=== PATIENT | female | born 1990 | race Caucasian/White ===

== ENCOUNTER → 2019-12-19 08:33 | Outpatient (CLI) | payer OTHER, SELFPAY ==
[2019-12-19 09:32] LABS: hCG Titer Quant., Serum 5 mIU/mL (1-3)
== END ==
PROVIDERS: Referring Provider Obstetrics & Gynecology; Visit Provider Obstetrics & Gynecology
DX: O20.0 Threatened abortion (principal); Z3A.00 Weeks of gestation of pregnancy not specified
CPT/HCPCS: 36415; 84702

== ENCOUNTER → 2019-12-21 08:29 | Outpatient (CLI) | payer OTHER, SELFPAY ==
[2019-12-21 09:33] LABS: hCG Titer Quant., Serum 2 mIU/mL (1-3)
== END ==
PROVIDERS: Referring Provider Obstetrics & Gynecology; Visit Provider Obstetrics & Gynecology
DX: O20.0 Threatened abortion (principal); Z3A.00 Weeks of gestation of pregnancy not specified
CPT/HCPCS: 36415; 84702

== ENCOUNTER → 2020-03-19 | Outpatient (CLI) | payer OTHER, SELFPAY ==
[2020-03-19 09:18] VITALS: BMI 23.0
[2020-03-19 17:56] LABS: Chlamydia Trachomatis by PCR Negative (Negative); Neisserai gonorrhoeae by PCR Negative (Negative); Probe Check PASS; Sample Adequacy Control PASS; Specimen Processing Control PASS
[2020-03-27 04:38] LABS: HPV APTIMA, High Risk Negative (Negative)
== END | disposition home or self-care (01) ==
LOC: LABSPEC 14:13
PROVIDERS: Referring Provider Obstetrics & Gynecology; Visit Provider Obstetrics & Gynecology
DX: Z34.90 Encounter for supervision of normal pregnancy, unspecified, unspecified trimester (principal)
CPT/HCPCS: 87086; 87088; 87491; 87591; 87624; 88175; G0145

== ENCOUNTER → 2020-03-28 14:06 | Outpatient (CLI) | payer OTHER, SELFPAY ==
[2020-03-19 09:18] VITALS: BMI 23.0
[2020-03-28 14:42] LABS: Absolute Lymphocyte Count 2.05 X10^3/uL (0.83-4.51); Absolute Neutrophil Count 6.1 X10^3/uL (2.0-7.7); Basophil# 0.02 X10^3/uL; Basophil% 0.2 % (0-1); Eosinophil# 0.11 X10^3/uL; Eosinophils% 1.2 % (0-5); Hematocrit 39.7 % (37-47); Hemoglobin 13.2 g/dL (12.0-15.0); Lymphocyte # 2.05 X10^3/ul (4.0); Lymphocyte % 22.8 % (19-41); Mean Corp Hgb Conc 33.2 g/dL (32-36); Mean Corpuscular Hgb 29.7 pg (27.0-32.0); Mean Corpuscular Volume 89.2 fL (81-99); Mean Platelet Vol. 10.8 fl (6.2-12.0); Monocyte# 0.67 X10^3/uL; Monocyte% 7.4 % (0-10); NRBC Flagged by Analyzer 0 % (0-5); Neutrophil # 6.13 X10^3/uL (2.7-7.7); Neutrophil % 68.1 % (47-70); Platelet Count 314 K/mm3 (150-450); RBC Distribution Width CV 11.9 % (11.6-14.6); RBC Distribution Width SD 38.5 fl (35.1-43.9); Red Blood Count 4.45 M/mm3 (4.2-5.4)
[2020-03-28 16:15] LABS: NATERA MAILED SPECIMEN
[2020-03-29 03:25] LABS: Rapid Plasmin Reagin (RPR) NONREACTIVE (NONREACTIVE)
[2020-03-29 10:28] LABS: HIV - WCH Non-Reactive (Nonreactive); Hepatitis B Surface Antigen Non-Reactive (Nonreactive); Hepatitis C Antibody Non-Reactive (Nonreactive)
== END ==
PROVIDERS: Obstetrics & Gynecology; Referring Provider Nurse Practitioner Women's Health; Visit Provider Nurse Practitioner Women's Health
DX: Z34.90 Encounter for supervision of normal pregnancy, unspecified, unspecified trimester (principal)
CPT/HCPCS: 36415; 85025; 86592; 86703; 86762; 86803; 86850; 86900; 86901; 87340

== ENCOUNTER → 2020-05-14 10:28 | Outpatient (CLI) | payer OTHER, SELFPAY ==
[2020-05-14 09:55] VITALS: BMI 23.0
[2020-05-15 04:46] LABS: AFP, Tumor Marker 32.5 ng/mL (0.0-8.3)
== END ==
PROVIDERS: Referring Provider Obstetrics & Gynecology; Visit Provider Obstetrics & Gynecology
DX: Z36.9 Encounter for antenatal screening, unspecified (principal)
CPT/HCPCS: 36415; 82105

== ENCOUNTER → 2020-06-11 18:13 | Outpatient (CLI) | payer OTHER, SELFPAY ==
[2020-05-14 09:55] VITALS: BMI 23.0
[2020-06-11 16:35] VITALS: BMI 23.0
--- NOTE | 2020-06-11 19:06 | US_ITS ---
STUDY: SECOND AND THIRD TRIMESTER OBSTETRICAL ULTRASOUND REASON FOR EXAM: Female, 29 years old ANATOMY SCREENING LMP: 01/16/2020 TECHNIQUE: Transabdominal TECHNICAL QUALITY: Adequate. PRIOR ULTRASOUND: None. FINDINGS: There is a single intrauterine fetus. The fetus is in a breech presentation. There is demonstrated cardiac activity with a heart rate of 141 bpm. There is a normal amniotic fluid volume. The largest amniotic fluid pocket measures 8.7 cm. The amniotic fluid index (ALEX) is 7.13 cm. The placenta is anterior in location and is not low lying. There are Grade 0 placental changes. The cervix measures 4.7 cm in length. The adnexal regions are not visualized. BIOMETRY: BPD: 4.9 cm: 20 weeks, 5 days HC: 18.76 cm: 21 weeks, 0 days AC: 17.22 cm: 27 weeks, 1 days FL: 3.43 cm: 20 weeks, 5 days CI: 73.4% FL/BPD: 70% FL/HC: FL/AC: 20% HC/AC: 1.09 age by current US: 20 weeks, 6 days. AUDREY by current US: 10/23/2020. Estimated weight: 429 grams, +/- 64 grams, 78 %. Age by LMP: 21 weeks, 0 days. AUDREY by LMP: 10/22/2020. ANATOMY: Gender: Female Cranium: Normal lateral ventricles. Normal choroid plexus. Normal cerebellum. Normal cisterna magna. Normal face, nose and lips. Chest: Normal 4-chamber heart. Abdomen/Pelvis: Normal diaphragm. Normal stomach. Normal abdominal wall. Normal cord insertion. Normal 3 vessel cord. Normal kidneys. Normal bladder. Spine: Normal cervical spine. Normal thoracic spine. Normal lumbar spine. Normal sacrum. Extremities: Normal bilateral upper extremities. Normal bilateral lower extremities. US/OB Anatomy Scan IMPRESSION: Single live intrauterine gestation with mean gestational age of 20 weeks and 6 days. Electronically Signed: Cr Cagle, at 13:52 EDT , Service support ,
== END ==
PROVIDERS: Referring Provider Obstetrics & Gynecology; Visit Provider Obstetrics & Gynecology
DX: Z34.90 Encounter for supervision of normal pregnancy, unspecified, unspecified trimester (principal)
CPT/HCPCS: 76805

== ENCOUNTER → 2020-07-30 14:55 | Outpatient (CLI) | payer OTHER, SELFPAY ==
[2020-07-12 15:32] VITALS: BMI 25.9
[2020-07-30 15:33] LABS: Absolute Lymphocyte Count 2.25 X10^3/uL (0.83-4.51); Absolute Neutrophil Count 8.9 X10^3/uL (2.0-7.7); Basophil# 0.03 X10^3/uL; Basophil% 0.3 % (0-1); Eosinophil# 0.08 X10^3/uL; Eosinophils% 0.7 % (0-5); Hematocrit 36.8 % (37-47); Lymphocyte # 2.25 X10^3/ul (4.0); Lymphocyte % 18.8 % (19-41); Mean Corp Hgb Conc 32.6 g/dL (32-36); Mean Corpuscular Hgb 29.8 pg (27.0-32.0); Mean Corpuscular Volume 91.3 fL (81-99); Mean Platelet Vol. 10.3 fl (6.2-12.0); Monocyte# 0.66 X10^3/uL; Monocyte% 5.5 % (0-10); NRBC Flagged by Analyzer 0 % (0-5); Neutrophil # 8.88 X10^3/uL (2.7-7.7); Neutrophil % 74.4 % (47-70); Platelet Count 296 K/mm3 (150-450); RBC Distribution Width CV 12.8 % (11.6-14.6); RBC Distribution Width SD 42.3 fl (35.1-43.9); Red Blood Count 4.03 M/mm3 (4.2-5.4); White Blood Count 11.9 K/mm3 (4.4-11.0)
[2020-07-30 16:01] LABS: Glucose Challenge Gest 1H 50g 122 mg/dL (70-140)
[2020-08-07 01:18] LABS: CF, Screen Comment: (.)
== END ==
PROVIDERS: Referring Provider Obstetrics & Gynecology; Visit Provider Obstetrics & Gynecology
DX: Z34.90 Encounter for supervision of normal pregnancy, unspecified, unspecified trimester (principal); Z13.1 Encounter for screening for diabetes mellitus
CPT/HCPCS: 36415; 81220; 82950; 85025

== ENCOUNTER → 2020-09-24 | Outpatient (CLI) | payer OTHER, SELFPAY ==
[2020-09-24 16:08] VITALS: BMI 28.6
== END | disposition home or self-care (01) ==
LOC: LABSPEC 18:08
PROVIDERS: Visit Provider Obstetrics & Gynecology
DX: Z34.90 Encounter for supervision of normal pregnancy, unspecified, unspecified trimester (principal)
CPT/HCPCS: 87081

== ENCOUNTER → 2020-10-19 17:25 | Outpatient (CLI) | payer OTHER, SELFPAY ==
[2020-09-24 16:08] VITALS: BMI 28.6
[2020-10-19 15:31] VITALS: BMI 29.2
== END ==
PROVIDERS: Obstetrics & Gynecology; Visit Provider Nurse Practitioner Women's Health
DX: Z34.90 Encounter for supervision of normal pregnancy, unspecified, unspecified trimester (principal)
CPT/HCPCS: 87635; C9803; U0005; U0003

== ENCOUNTER 2020-10-29 19:05 | Inpatient (IN) | payer OTHER, SELFPAY ==
[2020-10-12 15:20] VITALS: BMI 28.8
[2020-10-26 15:10] VITALS: BMI 28.4
[2020-10-29 20:08] VITALS: BP 125/82; PULSE 84; PULSE 87; TEMP 36.8; O2SAT 96; O2SAT 97
[2020-10-29] MEDS: Lactated Ringers 1,000 ML 50 ML IV (20:30)
--- NOTE | 2020-10-29 20:30 | HP.PCM_ITS ---
- Problem List (1) 36 weeks gestation of Status: Acute Comment: Negative COVID (2) Status: Acute Qualifiers: Weeks of gestation: 41 weeks Qualified Code(s): Z3A.41 - 41 weeks gestation of Comment: genetic low risk. NEG AFP, anatomy normal; NEG CF screen (3) Supervision of normal Status: Acute Qualifiers: Comment: PRR AUDREY 10/22/20 girl Judie, Samuel History and Physical Date of Admission: 10/29/20 Intake Vital Signs 10/26/20 Height 5 ft 5 in 10/26/20 Weight: 171 lb 10/26/20 BP 120/72 Intake Visit Reasons: 41WK OB Allergies No Known Allergies Allergy (Verified 10/19/20 15:34) Last Menstral Period: 01/16/20 PFSH PFSH Surgical History H/O oral surgery (Acute) Family History Father Heart disease Cancer Diabetes Parkinsons disease Social History (Updated 10/26/20 @ 15:[address] Emma Everett MD) household members: spouse housing: house number of children: 0 current occupational status: employed current occupation: physical therapist @ [employer] history of recent travel: No sexually active: Yes Smoking Status: Never smoker alcohol intake: current alcohol intake frequency: holidays/special occasions only substance use type: does not use well-balanced diet: daily or most days caffeine: Yes (1) Type: coffee what type of physical activity do you participate in: walking frequency: 5-6 times per week seatbelt use: always do you feel safe at home: Yes Pregancy History 2 Elective abortions Hx Para 0 Spontaneous abortions 1 Hx # Term Pregnancies Ectopic pregnancies Hx # Pregnancies Multiple births # of living children HPI 41WK OB : Details: KAYLEE HICKMAN is a 29 year old G2, P0 at 41 weeks presents for induction of labor secondary to postdates. She has had an uncomplicated . OB Visit AUDREY Calculator Estimated Delivery Date Method Current WG Current Estimate 10/22/20 LMP (Certain) 40w 4d Other Estimates 10/22/20 Ultrasound #1 40w 4d Expected Delivery Route/Plan Labor Preferences- CB classes: done labor support person: Samuel pain management options preferred: epidural cut cord/dad catch: yes maybe : yes PP control planned: [] discussed possible routes of delivery and associated risks: discussed possible delivery modalities and possible indications for each including R/B/A of , VAVD, and CS. questions answered. special requests: [] Specific Issue/Plans flu vaccine: get at work tdap vaccine: given rhogam: na LARC form signed: declined movement and labor precautions reviewed. Problem list reviewed and updated with the most current plan of care details and appropriate orders placed. Relevant counseling for the gestational age provided. Continue routine care and follow up unless otherwise noted in visit notes/problem list details Initial Weight: 135 lb Date EGA Weight BP Urine Prot Glucose FHR FuHt Pres Dilation Effaced St Visit Note 03/19/20 9w 0d 138 lb 4 oz (+3 lb 4 oz) 122/76 180 CRL 2.1 cm consistent with LMP 04/18/20 13w 2d 142 lb (+7 lb) 122/74 Negative Negative 160 SM- no vb cramping 05/14/20 17w 0d 145 lb (+10 lb) 104/80 150 SM- no vb cramping, plan carrier and ntd screen today 06/11/20 21w 0d 147 lb (+12 lb) 100/60 Negative Negative 145 GP - no cramping, LOF, DFM, ctx. Anatomy scan this evening. 07/12/20 25w 3d 156 lb (+21 lb) 110/72 145 25 SM- no vb lof good fm no regular ctx 07/30/20 28w 0d 158 lb 8 oz (+23 lb 8 oz) 118/80 Negative Negative 135 28 GP - no LOF, VB, DFM, ctx. Decided on Judie for name. TDAP given. LARC form signed. GCT done today, but pending. GP - no LOF, VB, DFM, ctx. Decided on Judie for name. TDAP given. LARC form signed. GCT normal. 08/13/20 30w 0d 160 lb (+25 lb) 112/82 Negative Negative 135 30 SM- no vb lof good fm no regular ctx 08/29/20 32w 2d 161 lb 8 oz (+26 lb 8 oz) 114/70 Negative Negative 135 32 SM- no vb lof good fm no regular ctx 09/13/20 34w 3d 165 lb (+30 lb) 124/80 Negative Negative 140 34 GP - no LOF, VB, DFM, ctx. CB classes scheduled for this weekend. 09/24/20 36w 0d 167 lb (+32 lb) 110/82 Negative Negative 130 36 Cephalic 0 SM- no vb lof good fm no regular ctx gbs 10/05/20 37w 4d 167 lb (+32 lb) 110/82 Negative Negative 125 37 Cephalic 1 Sm- no vb lof good fm no regular ctx 10/12/20 38w 4d 168 lb (+33 lb) 116/78 Negative Negative 130 38 Cephalic 1 SM- no vb lof good fm no regular ctx 10/19/20 39w 4d 170 lb 4 oz (+35 lb 4 oz) 122/80 Negative Negative 125 39 Cephalic 1 50 -2 GP - no LOF, VB, DFM, ctx . Denies complaints. 10/26/20 40w 4d 171 lb (+36 lb) 120/72 130 40 Cephalic 1 50 -2 SM- no vb lof good fm no regular ctx ACOG First Trimester First Trimester: Desire for , Alcohol, Tobacco Cessation, Illicit/Recreational Drug/Substance Use, Intimate Partner Violence, Barriers to care, Unstable Housing, Communication Barriers, Environmental/Work Hazards, Anticipated Course of Care, Toxoplasmosis Precations, Use of Any medications, Sexual activity, Exercise, Dental Care, Sauna/Hot tub use, Seat Belt use, Childbirth classes/Hospital facilities, , Travel, Indications for US and Screening for Aneuploidy Diagnostics Diagnostics Diagnostics Glucose 1 Hr 50 gm 122 mg/dL (70-140) 07/30/20 Hgb 12.0 g/dL (12.0-15.0) 07/30/20 Hct 36.8 % (37-47) L 07/30/20 Details: HIV: Urine Culture: Sequential Screen: NIPT Screen: ROS Const Reports system reviewed and no additional complaints, except as docu Card Reports system reviewed and no additional complaints, except as docu Resp Reports system reviewed and no additional complaints, except as docu GI Reports system reviewed and no additional complaints, except as docu, Reports nausea Reports system reviewed and no additional complaints, except as docu Musc Reports system reviewed and no additional complaints, except as docu Exam Const General: cooperative, healthy appearing, comfortable, anxious HENMT Head: normal to inspection Nose: external nose normal Face and sinus: normal facial exam Neck Neck: normal visual inspection, full ROM, no lymphadenopathy Thyroid: thyroid normal Chest Chest palpation & inspection: normal inspection of the chest Resp Effort & Inspection: normal respiratory effort GI Inspection: normal to inspection Palpation: soft, other (gravid uterus) Other: infant vertex and appropriate size for gestational age Other: Cervical Exam: Extrem General: pedal edema Assessment & Plan Problems 1. Supervision of normal Z34.90 PRR AUDREY 10/22/20 girl Judie, Samuel 2. Z34.90 genetic low risk. NEG AFP, anatomy normal; NEG CF screen 3. 36 weeks gestation of Z3A.36 Negative COVID 41 weeks postdates induction of labor Patient presents IOL, plan management for with Cytotec then Pitocin/AROM. Pain management: [plans epidural]. GBS [negative]. Management of any complications: [none] I have reviewed the [facility] and made any clinically relevant updates. Coding Level of Care Code OB Routine Diagnoses Supervision of normal Z34.90 Z34.90 36 weeks gestation of Z3A.36 UPDATE- I have seen the patient and performed any clinically relevant updates to the history and physical exam. Emma Everett MD
[2020-10-29 20:37] VITALS: BMI 28.6
[2020-10-29 20:49] LABS: Absolute Lymphocyte Count 1.95 X10^3/uL (0.83-4.51); Absolute Neutrophil Count 7.9 X10^3/uL (2.0-7.7); Basophil# 0.03 X10^3/uL; Basophil% 0.3 % (0-1); Eosinophil# 0.11 X10^3/uL; Hematocrit 37.4 % (37-47); Hemoglobin 12.8 g/dL (12.0-15.0); Lymphocyte # 1.95 X10^3/ul (4.0); Lymphocyte % 17.9 % (19-41); Mean Corp Hgb Conc 34.2 g/dL (32-36); Mean Corpuscular Hgb 30.6 pg (27.0-32.0); Mean Corpuscular Volume 89.5 fL (81-99); Mean Platelet Vol. 11.4 fl (6.2-12.0); Monocyte# 0.89 X10^3/uL; Monocyte% 8.2 % (0-10); NRBC Flagged by Analyzer 0 % (0-5); Neutrophil # 7.85 X10^3/uL (2.7-7.7); Platelet Count 257 K/mm3 (150-450); RBC Distribution Width CV 12.4 % (11.6-14.6); RBC Distribution Width SD 40.5 fl (35.1-43.9); Red Blood Count 4.18 M/mm3 (4.2-5.4); White Blood Count 10.9 K/mm3 (4.4-11.0)
[2020-10-29] MEDS: 0.9% Saline Lock 10 ML Syringe IV (21:17)
--- NOTE | 2020-10-29 22:58 | NURSING ---
pt induction placed on hold. will be restarted in AM d/t unit acuity and activity.
[2020-10-29 23:12] VITALS: TEMP 36.7
[2020-10-29] MEDS: DiphenhydrAMINE 25 MG Capsule 50 MG PO (23:13)
[2020-10-30] VITALS (58 sets, daily range): BP systolic 99–138; BP diastolic 56–86; PULSE 69–130; RESP 18; TEMP 36.4–37.3; O2SAT 80–99
[2020-10-30] MEDS: miSOPROStol 25 MCG TABLET VAGINAL (06:17)
[2020-10-30] MEDS: 0.9% Normal Saline Single 100 ML IV.SOLN. INTRA-UTER (06:20)
[2020-10-30] MEDS: Ondansetron 4 MG/2 ML Vial IV ×2 (07:20→15:52)
[2020-10-30] MEDS: 0.9% Saline Lock 10 ML Syringe IV (07:20)
[2020-10-30] MEDS: Oxytocin 30 units/NS 500 ml 30 UNITS/500 ML IV.SOLN IV (10:50)
[2020-10-30] MEDS: Lactated Ringers 500 ML 999 ML IV (14:38)
[2020-10-30] MEDS: fentaNYL-bupivacaine (epidural) 100 ML BAG EPIDURAL (15:07)
[2020-10-30] MEDS: Lactated Ringers 1,000 ML 200 ML IV (17:24)
[2020-10-30] MEDS: Oxytocin 30 units/NS 500 ml 30 UNITS/500 ML IV.SOLN 334 UNITS IV (19:23)
--- NOTE | 2020-10-30 19:36 | PCM.OPRPT ---
Problem List (1) 36 weeks gestation of Status: Acute Comment: Negative COVID (2) Status: Acute Qualifiers: Weeks of gestation: 41 weeks Qualified Code(s): Z3A.41 - 41 weeks gestation of Comment: genetic low risk. NEG AFP, anatomy normal; NEG CF screen (3) Supervision of normal Status: Acute Qualifiers: Comment: PRR AUDREY 10/22/20 girl Judie, Samuel Vaginal Delivery Maternal Presentation: Medically Indicated Induction iol postdates Method of Induction: Pitocin, Cytotec Medical Reason for Induction: Post term Amniotic Membrane Rupture Type: Artificial Amniotic Fluid Description: Clear Final AUDREY: 10/22/20 Gestational age: 41 Weeks and 1 Days Date of Procedure: 10/30/20 Pre-Operative Diagnosis: iol postdates Post-Operative Diagnosis: same Surgery/ Procedure Performed: Spontaneous Vaginal Delivery Type of Anesthesia: Epidural Description of Procedure: Patient began pushing and delivered the head in the MALIK presentation. The head was delivered atraumatically and a tight nuchal cord was noted that the was maneuvered and delivered through. The anterior and posterior shoulders delivered without complication followed by the rest of the infant and the infant was placed on the maternal abdomen. Delayed cord clamping was employed for approximately 60 seconds. Cord was clamped and cut and gentle traction was applied to the cord and the placenta delivered spontaneously immediately following it was noted to be intact with three-vessel cord. The perineum and vagina were inspected and have a second-degree perineal laceration repaired in the usual fashion with 3-0 Vicryl repeat. EBL was 200 cc. Patient and infant tolerated delivery well. Presentation: MAIA Placental Delivery Description: Spontaneous Placenta Disposition: [facility] Cord Vessel Description: 3 Vessels Cord Entanglement: Around neck x 1, tight Estimated Blood Loss: 200 A gender: Female Episiotomy Description: None Laceration: Perineal Extension/lac, 2nd degree Medications given after delivery: IV Pitocin Complications: None Multi Select Codes - Urinary/Genital Urinary/Genital CPT Codes: 38268 [facility]aginal [facility]
[2020-10-31] VITALS (8 sets, daily range): BP systolic 103–130; BP diastolic 62–66; PULSE 71–85; RESP 15–18; TEMP 36.6–36.9
[2020-10-31] MEDS: Naproxen 250 MG Tablet 500 MG PO ×2 (04:02→13:33)
--- NOTE | 2020-10-31 08:03 | PCM.PN.OB ---
Patient Problems: Active and Suspected Problems (Last Reviewed 10/19/20 @ 15:34 by Yaa Black) 36 weeks gestation of (Acute) Negative COVID (Acute) genetic low risk. NEG AFP, anatomy normal; NEG CF screen Supervision of normal (Acute) PRR AUDREY 10/22/20 girl Judie, Samuel Subjective: Patient doing well without complaints. Tolerating PO. Ambulating and voiding without difficulty. Breast feeding well. Denies chest pain, shortness of breath, calf pain/swelling, fevers, chills, lightheadedness. - Physical Exam Vitals/I&O's: Vital Signs Temp Pulse Resp BP Pulse Ox 98.4 F 85 18 107/62 96 10/31/20 03:53 10/31/20 03:53 10/31/20 03:53 10/31/20 03:53 10/30/20 23:45 Oxygen Delivery Method Room Air Weight: 172 lb 3.2 oz Body Mass Index (BMI) 28.6 Intake and Output for Last 24 Hours 10/29/20 10/30/20 10/31/20 23:59 23:59 23:59 Intake Total 39.17 / 39.17 3297.24 / 3297.24 Output Total 1000 / 1000 750 / 750 Balance 39.17 / 39.17 2297.24 / 2297.24 -750 / -750 General: Alert, Oriented x3 Abdomen: Soft, Non Tender, Non-Distended, - - FF below U Microbiology Past 72 Hours 10/29/20 21:00 Mucosa - Nose SARS-CoV-2 Antigen (Rapid) - Final Current Medications Acetaminophen (Acetaminophen 500 Mg Tablet) 1,000 mg PO Q8H PRN PRN PRN Reason: Pain Score 1-3 Bisacodyl (Bisacodyl 10 Mg Suppository) 10 mg RC UD PRN PRN Reason: If no BM Dibucaine (Dibucaine 30 Gm Tube) 1 applic TOPICAL TID PRN PRN; Protocol PRN Reason: Discomfort Hydrocortisone (Hydrocortisone 2.5% Crm) 1 applic TOPICAL TID PRN PRN; Protocol PRN Reason: Discomfort Methylergonovine Maleate (Methylergonovine 0.2 Mg/Ml Ampul) 0.2 mg IM X1 PRN PRN Reason: Excess bleeding/uterine atony Naproxen (Naproxen 250 Mg Tablet) 500 mg PO Q8H PRN PRN PRN Reason: Pain Score 1-3 Last Admin: 10/31/20 04:02 Dose: 500 mg Documented by: Ondansetron HCl (Ondansetron 4 Mg/2 Ml Vial) 4 mg IV Q4H PRN PRN PRN Reason: Nausea Oxycodone HCl (Oxycodone 5 Mg Tablet) 5 - 10 mg PO Q4H PRN PRN PRN Reason: Pain Score 4-10 Senna/Docusate Sodium (Senna/Docusate Sodium 1 Tablet) 1 - 2 tablet PO DAILY PRN PRN PRN Reason: Constipation Simethicone (Simethicone 80 Mg Tablet) 80 mg PO PCHS PRN PRN Reason: Indigestion/Stomach pain Sodium Chloride (0.9% Saline Lock 10 Ml Syringe) 5 - 15 ml IV UD PRN PRN Reason: SALINE FLUSH Medical Necessity - Tobacco Use Smoking Status: Never smoker Assessment/Plan All Active Problems (Last Reviewed 10/19/20 @ 15:34 by Yaa Black) 36 weeks gestation of (Acute) (Acute) Supervision of normal (Acute) s/p PPD # 1 1. routine post delivery care 2. breast feeding- support given 3. rh positive 4. rubella immune
[2020-10-31] MEDS: Acetaminophen 500 MG Tablet 1000 MG PO ×2 (09:48→20:41)
[2020-11-01 01:08] VITALS: BP 107/64; PULSE 75
[2020-11-01 01:09] VITALS: BP 107/64; PULSE 75; RESP 18; TEMP 36.5
[2020-11-01] MEDS: Naproxen 250 MG Tablet 500 MG PO ×2 (01:15→10:01)
[2020-11-01] MEDS: Acetaminophen 500 MG Tablet 1000 MG PO (06:44)
[2020-11-01 07:40] VITALS: BP 110/66; PULSE 67; RESP 16; TEMP 37.1
--- NOTE | 2020-11-01 07:53 | PCM.PN.OB ---
Subjective: Patient doing well without complaints. Tolerating PO. Ambulating and voiding without difficulty. well. Denies chest pain, shortness of breath, calf pain/swelling, fevers, chills, lightheadedness. - Physical Exam Vitals/I&O's: Vital Signs Temp Pulse Resp BP Pulse Ox 97.7 F L 75 18 107/64 96 11/01/20 01:09 11/01/20 01:09 11/01/20 01:09 11/01/20 01:09 10/30/20 23:45 Oxygen Delivery Method Room Air Weight: 172 lb 3.2 oz Body Mass Index (BMI) 28.6 Intake and Output for Last 24 Hours 10/30/20 10/31/20 11/01/20 23:59 23:59 23:59 Intake Total 3297.24 / 3297.24 Output Total 1000 / 1000 750 / 750 Balance 2297.24 / 2297.24 -750 / -750 General: Alert, Oriented x3 Abdomen: Soft, Non Tender, - - FF below U Microbiology Past 72 Hours 10/29/20 21:00 Mucosa - Nose SARS-CoV-2 Antigen (Rapid) - Final Current Medications Acetaminophen (Acetaminophen 500 Mg Tablet) 1,000 mg PO Q8H PRN PRN PRN Reason: Pain Score 1-3 Last Admin: 11/01/20 06:44 Dose: 1,000 mg Documented by: Bisacodyl (Bisacodyl 10 Mg Suppository) 10 mg RC UD PRN PRN Reason: If no BM Dibucaine (Dibucaine 30 Gm Tube) 1 applic TOPICAL TID PRN PRN; Protocol PRN Reason: Discomfort Hydrocortisone (Hydrocortisone 2.5% Crm) 1 applic TOPICAL TID PRN PRN; Protocol PRN Reason: Discomfort Methylergonovine Maleate (Methylergonovine 0.2 Mg/Ml Ampul) 0.2 mg IM X1 PRN PRN Reason: Excess bleeding/uterine atony Naproxen (Naproxen 250 Mg Tablet) 500 mg PO Q8H PRN PRN PRN Reason: Pain Score 1-3 Last Admin: 11/01/20 01:15 Dose: 500 mg Documented by: Ondansetron HCl (Ondansetron 4 Mg/2 Ml Vial) 4 mg IV Q4H PRN PRN PRN Reason: Nausea Oxycodone HCl (Oxycodone 5 Mg Tablet) 5 - 10 mg PO Q4H PRN PRN PRN Reason: Pain Score 4-10 Senna/Docusate Sodium (Senna/Docusate Sodium 1 Tablet) 1 - 2 tablet PO DAILY PRN PRN PRN Reason: Constipation Simethicone (Simethicone 80 Mg Tablet) 80 mg PO PCHS PRN PRN Reason: Indigestion/Stomach pain Sodium Chloride (0.9% Saline Lock 10 Ml Syringe) 5 - 15 ml IV UD PRN PRN Reason: SALINE FLUSH Medical Necessity - Tobacco Use Smoking Status: Never smoker Assessment/Plan All Active Problems (Last Reviewed 10/19/20 @ 15:34 by Yaa Black) 36 weeks gestation of (Resolved) (Resolved) Supervision of normal (Resolved) s/p PPD # 2 1. routine post delivery care 2. breast feeding- support given 3. rh positive 4. rubella immune 5. enc stool softener 6. home today
[2020-11-01 07:56] VITALS: BP 110/66; PULSE 67
--- NOTE | 2020-11-01 07:57 | DCINST_ITS ---
Additional Instructions: If you experience any of the following, contact your healthcare provider. * Bleeding that soaks a pad every hour for 2 hours * Fever 100.4 or higher * Unrelieved incision or abdominal pain * Swelling, redness, discharge or bleeding from your incision or episiotomy site * Your incision begins to separate * Problems urinating (including inability to urinate or burning while urinating). * Visual changes * Severe headache * Flu-like symptoms * Pain or redness in one of both of your breasts * Pain, warmth, tenderness or swelling in your legs, especially the calf area * Frequent nausea and vomiting * Symptoms of depression or anxiety If you experience any of the following, call 911 or go to the nearest Emergency Room. * Chest pain * Problems breathing * Seizure activity * Partial or complete paralysis of a body part, slurred speech, weakness or drooping of the face, or a sudden inability to walk or hold your balance Allergies/Adverse Reactions: Allergies No Known Allergies Allergy (Verified 10/29/20 20:45) Medications to take at Discharge vitamin#30 30 mg iron-10 mg iron-folic acid 1 mg-omg3 capsule 1 cap PO DAILY 04/18/20 Primary Care Physician: Care Physician,No Primary [Primary Care Provider] - Test Results: Test results from this visit will be discussed in further detail at your follow- up appointment, if applicable.
--- NOTE | 2020-11-01 07:57 | PCM.DCVAG ---
Additional Instructions: If you experience any of the following, contact your healthcare provider. Bleeding that soaks a pad every hour for 2 hours Fever 100.4 or higher Unrelieved incision or abdominal pain Swelling, redness, discharge or bleeding from your incision or episiotomy site Your incision begins to separate Problems urinating (including inability to urinate or burning while urinating). Visual changes Severe headache Flu-like symptoms Pain or redness in one of both of your breasts Pain, warmth, tenderness or swelling in your legs, especially the calf area Frequent nausea and vomiting Symptoms of depression or anxiety If you experience any of the following, call 911 or go to the nearest Emergency Room. Chest pain Problems breathing Seizure activity Partial or complete paralysis of a body part, slurred speech, weakness or drooping of the face, or a sudden inability to walk or hold your balance Allergies/Adverse Reactions: Allergies No Known Allergies Allergy (Verified 10/29/20 20:45) Medications to take at Discharge vitamin#30 30 mg iron-10 mg iron-folic acid 1 mg-omg3 capsule 1 cap PO DAILY 04/18/20 Primary Care Physician: Care Physician,No Primary [Primary Care Provider] - Test Results: Test results from this visit will be discussed in further detail at your follow-up appointment, if applicable.
[2020-11-01] MEDS: Senna/Docusate Sodium 1 Tablet PO (10:00)
== END 2020-11-01 10:40 | disposition home or self-care (01) | DRG 807 ==
PROVIDERS: Admitting Provider Obstetrics & Gynecology; Visit Provider Obstetrics & Gynecology
DX: O48.0 Post-term pregnancy (principal); Z37.0 Single live birth; Z3A.41 41 weeks gestation of pregnancy; O69.1XX0 Labor and delivery complicated by cord around neck, with compression, not applicable or unspecified; O70.1 Second degree perineal laceration during delivery
CPT/HCPCS: 59025; 59050; 85025; 86850; 86900; 86901; 87426; 99218; J7120; A4216; G0378; J2405

== ENCOUNTER → 2022-10-30 | Outpatient (CLI) | payer OTHER, SELFPAY ==
[2022-10-30 15:33] LABS: Absolute Lymphocyte Count 0.95 X10^3/uL (0.83-4.51); Absolute Neutrophil Count 3.2 X10^3/uL (2.0-7.7); Basophil# 0.01 X10^3/uL; Basophil% 0.2 % (0-1); Eosinophil# 0.05 X10^3/uL; Eosinophils% 1.1 % (0-5); Hematocrit 41.2 % (37-47); Lymphocyte # 0.95 X10^3/ul (0.83-4.51); Lymphocyte % 20.2 % (19-41); Mean Corpuscular Hgb 29.4 pg (27.0-32.0); Mean Corpuscular Volume 86.4 fL (81-99); Mean Platelet Vol. 10.2 fl (6.2-12.0); Monocyte# 0.48 X10^3/uL; Monocyte% 10.2 % (0-10); NRBC Flagged by Analyzer 0 % (0-5); Neutrophil % 68.1 % (47-70); Platelet Count 278 K/mm3 (150-450); RBC Distribution Width CV 12.5 % (11.6-14.6); RBC Distribution Width SD 39.6 fl (35.1-43.9); Red Blood Count 4.77 M/mm3 (4.2-5.4); White Blood Count 4.7 K/mm3 (4.4-11.0)
[2022-10-30 16:24] LABS: HIV - WCH Non-Reactive (Nonreactive); Hepatitis B Surface Antigen Non-Reactive (Nonreactive); Hepatitis C Antibody Non-Reactive (Nonreactive); Rubella IgG Reactive (Nonreactive); Syphilis Antibodies Non-reactive
[2022-11-02 07:07] LABS: Chlamydia By Nucleic Acid AMP Negative (Negative)
[2022-11-02 08:31] LABS: Gonococcus By Nucleic Acid AMP Negative (Negative)
== END | disposition home or self-care (01) ==
PROVIDERS: Referring Provider Obstetrics & Gynecology; Visit Provider Obstetrics & Gynecology
DX: Z34.90 Encounter for supervision of normal pregnancy, unspecified, unspecified trimester (principal)
CPT/HCPCS: 36415; 85025; 86703; 86762; 86780; 86803; 86850; 86900; 86901; 87086; 87340; 87491; 87591

== ENCOUNTER → 2023-02-20 | Outpatient (CLI) | payer OTHER, SELFPAY ==
[2023-02-20 14:32] LABS: Absolute Lymphocyte Count 1.76 X10^3/uL (0.83-4.51); Absolute Neutrophil Count 7.7 X10^3/uL (2.0-7.7); Basophil# 0.03 X10^3/uL; Basophil% 0.3 % (0-1); Hematocrit 36.6 % (37-47); Hemoglobin 12.4 g/dL (12.0-15.0); Lymphocyte # 1.76 X10^3/ul (0.83-4.51); Lymphocyte % 17.4 % (19-41); Mean Corp Hgb Conc 33.9 g/dL (32-36); Mean Corpuscular Hgb 30.8 pg (27.0-32.0); Mean Platelet Vol. 10.1 fl (6.2-12.0); Monocyte% 4.9 % (0-10); NRBC Flagged by Analyzer 0 % (0-5); Neutrophil # 7.71 X10^3/uL (2.7-7.7); Neutrophil % 76.2 % (47-70); Platelet Count 296 K/mm3 (150-450); RBC Distribution Width SD 43.1 fl (35.1-43.9); Red Blood Count 4.02 M/mm3 (4.2-5.4); White Blood Count 10.1 K/mm3 (4.4-11.0)
[2023-02-20 15:02] LABS: Glucose Challenge Gest 1H 50g 130 mg/dL (70-140)
[2023-02-20 16:11] LABS: HIV - WCH Non-Reactive (Nonreactive); Syphilis Antibodies Non-reactive
== END | disposition home or self-care (01) ==
LOC: LAB 14:06
PROVIDERS: Referring Provider Obstetrics & Gynecology; Visit Provider Obstetrics & Gynecology
DX: O09.90 Supervision of high risk pregnancy, unspecified, unspecified trimester (principal); Z13.1 Encounter for screening for diabetes mellitus; Z3A.00 Weeks of gestation of pregnancy not specified
CPT/HCPCS: 36415; 82950; 85025; 86703; 86780

== ENCOUNTER → 2023-05-01 | Outpatient (CLI) | payer OTHER, SELFPAY | END | disposition home or self-care (01) | PROVIDERS: Visit Provider Obstetrics & Gynecology | DX: Z34.90 Encounter for supervision of normal pregnancy, unspecified, unspecified trimester (principal) | CPT/HCPCS: 87077; 87081; 87186 ==

== ENCOUNTER 2023-05-31 22:00 | Inpatient (IN) | payer OTHER, SELFPAY ==
[2023-05-31] VITALS (22 sets, daily range): BP systolic 133–150; BP diastolic 60–92; PULSE 84–129; TEMP 37.1; O2SAT 96–100; BMI 27.7
[2023-05-31] MEDS: LACTATED RINGERS 500 ML 999 ML IV (22:15)
[2023-05-31] MEDS: Penicillin G Pot 5,000,000 UNITS in 0.9% Normal Saline (100mL MB+) 100 ML 150 UNITS IV (22:26)
[2023-05-31 22:43] LABS: Absolute Lymphocyte Count 2.34 X10^3/uL (0.83-4.51); Absolute Neutrophil Count 9.6 X10^3/uL (2.0-7.7); Basophil# 0.03 X10^3/uL; Basophil% 0.2 % (0-1); Eosinophil# 0.14 X10^3/uL; Eosinophils% 1.1 % (0-5); Hematocrit 38.8 % (37-47); Hemoglobin 12.7 g/dL (12.0-15.0); Lymphocyte # 2.34 X10^3/ul (0.83-4.51); Lymphocyte % 17.8 % (19-41); Mean Corp Hgb Conc 32.7 g/dL (32-36); Mean Corpuscular Hgb 29.8 pg (27.0-32.0); Mean Corpuscular Volume 91.1 fL (81-99); Mean Platelet Vol. 11.1 fl (6.2-12.0); Monocyte# 0.97 X10^3/uL; Monocyte% 7.4 % (0-10); NRBC Flagged by Analyzer 0 % (0-5); Neutrophil # 9.59 X10^3/uL (2.7-7.7); Platelet Count 259 K/mm3 (150-450); RBC Distribution Width SD 42.4 fl (35.1-43.9); Red Blood Count 4.26 M/mm3 (4.2-5.4); White Blood Count 13.1 K/mm3 (4.4-11.0)
[2023-05-31] MEDS: Lactated Ringers 1,000 ML 200 ML IV (22:46)
[2023-05-31] MEDS: Lidocaine 1% (20 ml mdv) 20 ML Vial INFILT ×2 (23:38→23:41)
[2023-05-31] MEDS: Oxytocin 10 UNITS/ML Vial IM (23:42)
[2023-05-31] MEDS: Oxytocin 15 Units/NS 250ml 15 UNITS/250 ML IV.SOLN 83 UNITS IV (23:42)
[2023-06-01] VITALS (17 sets, daily range): BP systolic 109–135; BP diastolic 55–77; PULSE 67–106; RESP 15–16; TEMP 36.3–37.3; O2SAT 82–100
[2023-06-01 00:01] LABS: Syphilis Antibodies Non-reactive
[2023-06-01] MEDS: Acetaminophen 500 MG Tablet PO (00:44)
--- NOTE | 2023-06-01 00:46 | HP.PCM.OB_ITS ---
HPI - General General Date of Admission: 05/31/23 HPI Narrative KAYLEE HICKMAN, is a 32 F who presents in active labor regular contractions no vaginal bleeding or loss of fluid admits good movement. 6 cm dilated progresses to complete within 2 hours. Maternal Data Information AUDREY Calculator Estimated Delivery Date Method Current WG Current Estimate 05/29/23 LMP (Certain) 40w 3d PFSH PFSH Medical History (Updated 06/01/23 @ 00:[address] Emma Everett MD) History of HPV infection Hx of abnormal cervical Pap smear Superficial varicosities Home Medications multivitamin no.47-iron fum 27 mg-folate no.1 1 mg-dha 300 mg capsule (PNV-DHA) cap PO 10/23/22 [History Last Taken 05/31/23] Allergy/AdvReac Type Severity Reaction Status Date / Time No Known Allergies Allergy Verified 05/31/23 22:01 Family History Father Heart disease Cancer Diabetes Parkinsons disease Surgical History H/O oral surgery [place] teeth extracted Social History adopted: No household members: spouse and children housing: house number of children: 1 current occupational status: employed current occupation: physical therapist @ [employer] pets and animals: Yes pets and animals: dog(s) history of recent travel: No sexually active: Yes Smoking Status: Never smoker alcohol intake: current alcohol intake frequency: holidays/special occasions o nly details: social- not while substance use type: does not use well-balanced diet: daily or most days caffeine: Yes Type: coffee Number of servings: 1 eating out: 1-3 times/week during the past year weight has: remained stable what type of physical activity do you participate in: none jayda/lutheran: Congregational seatbelt use: always do you feel safe at home: Yes additional social history: [place]- [employer] History 3 Elective abortions Hx Para 1 Spontaneous abortions 1 Hx # Term Pregnancies 1 Ectopic pregnancies Hx # Pregnancies Multiple births # of living children 1 Past Pregnancies Del. Date Name GA/Weeks Outcome Route Bth Weight Infant Gen Labor Lgth Anesthesia Del Locatn Provider FOB 10/30/20 Judie 41 live - full term Female [facility] Marguerite Delivery Date: 10/30/20 Last Updated by: Yaa Black IOL postdates 41 wks Visit Details Expected Delivery Route/Plan Labor Preferences- labor support person: oumar labor intervention preferences:none pain management options preferred:epidural cut cord/dad catch: yes : yes PP control planned: [] discussed possible routes of delivery and associated risks: [] special requests: [] Plans Covid status: discussed Flu vaccine: discussed Tdap vaccine: given Rhogam: na LARC form signed: declined movement and labor precautions reviewed. Problem list reviewed and updated with the most current plan of care details and appropriate orders placed. Relevant counseling for the gestational age provided. Continue routine care and follow up unless otherwise noted in visit notes/problem list details OB Flowsheet Initial Weight: Not Recorded Date -?-?-?-?-?-?-?-?-?-?-?-?- EGA Weight BP Urine Prot -?-?-?-?-?-?-?-?-?-?-?-?- Glucose FHR FuHt Pres Dilation -?-?-?-?-?-?-?-?-?-?-?-?- Effaced St Visit Note 10/30/22 -?-?-?-?-?-?-?-?-?-?-?-?- 9w 6d 135 lb 6 oz 114/72 -?-?-?-?-?-?-?-?-?-?-?-?- 160 -?-?-?-?-?-?-?-?-?-?-?-?- SM- CRL 2.5 cm c ons with LMP 11/25/22 -?-?-?-?-?-?-?-?-?-?-?-?- 13w 4d 138 lb 8 oz 132/74 Nega tive -?-?-?-?-?-?-?-?-?-?-?-?- Negative 160 -?-?-?-?-?-?-?-?-?-?-?-?- KW- via US with CHHAYA. No VB KW- via US with JV. No cramp ing/VB 12/24/22 -?-?-?-?-?-?-?-?-?-?-?-?- 17w 5d 143 lb 2 oz 106/74 Nega tive -?-?-?-?-?-?-?-?-?-?-?-?- Negative 154 -?-?-?-?-?-?-?-?-?-?-?-?- MH-NO VB. Nausea resolved. Doing well 01/23/23 -?-?-?-?-?-?-?-?-?-?-?-?- 22w 0d 148 lb 6 oz 131/86 -?-?-?-?-?-?-?-?-?-?-?-?- 155 -?-?-?-?-?-?-?-?-?-?-?-?- JV- no lof, vagi nal bleeding, or dec fm. anatomy scan is normal. 02/20/23 -?-?-?-?-?-?-?-?-?-?-?-?- 26w 0d 154 lb 6 oz 109/70 Nega tive -?-?-?-?-?-?-?-?-?-?-?-?- Negative 150 -?-?-?-?-?-?-?-?-?-?-?-?- SM- no vb lof go od fm no regular ctx 03/19/23 -?-?-?-?-?-?-?-?-?-?-?-?- 29w 6d 159 lb 6 oz 110/72 Nega tive -?-?-?-?-?-?-?-?-?-?-?-?- Negative 130 29 -?-?-?-?-?-?-?-?-?-?-?-?- JV- no lof, vagi nal bleeding, or dec fm. normal GCT. 04/03/23 -?-?-?-?-?-?-?-?-?-?-?-?- 32w 0d 160 lb 4 oz 115/77 -?-?-?-?-?-?-?-?-?-?-?-?- 140 32 -?-?-?-?-?-?-?-?-?-?-?-?- SM- no vb lof go od fm no regular ctx 04/17/23 -?-?-?-?-?-?-?-?-?-?-?-?- 34w 0d 161 lb 109/77 -?-?-?-?-?-?-?-?-?-?-?-?- 150 34 -?-?-?-?-?-?-?-?-?-?-?-?- Sm- no vb lof go od fm no regular ctx 05/01/23 -?-?-?-?-?-?-?-?-?-?-?-?- 36w 0d 163 lb 4 oz 106/71 Nega tive -?-?-?-?-?-?-?-?-?-?-?-?- Negative 145 36 Cephalic 2 -?-?-?-?-?-?-?-?-?-?-?-?- 50 JV- gbs collected. labor precautions discussed. 05/08/23 -?-?-?-?-?-?-?-?-?-?-?-?- 37w 0d 165 lb 8 oz 121/81 Nega tive -?-?-?-?-?-?-?-?-?-?-?-?- Negative 140 37 Cephalic 2 -?-?-?-?-?-?-?-?-?-?-?-?- 60 -3 LC- GBS po sitive reviewed. no vb/ctx/lof. good fm. no concerns. 05/14/23 -?-?-?-?-?-?-?-?-?-?-?-?- 37w 6d 167 lb 2 oz 110/72 -?-?-?-?-?-?-?-?-?-?-?-?- 147 36.5 Cephalic 2 -?-?-?-?-?-?-?-?-?-?-?-?- 80 -2 JV- no lof , vaginal bleeding, or dec fm. 05/21/23 -?-?-?-?-?-?-?-?-?-?-?-?- 38w 6d 167 lb 8 oz 110/79 Nega tive -?-?-?-?-?-?-?-?-?-?-?-?- Negative 140 38 Cephalic 2 -?-?-?-?-?-?-?-?-?-?-?-?- SM- no vb lof go od fm no regular ctx 05/29/23 -?-?-?-?-?-?-?-?-?-?-?-?- 40w 0d 169 lb 122/76 Negative -?-?-?-?-?-?-?-?-?-?-?-?- Negative 140 38 Cephalic 2 -?-?-?-?-?-?-?-?-?-?-?-?- 70 -2 SM- no vb lof good fm no regular ctx IOL setup NST FHR Rate Baby A Baseline: 120 Variability:: Moderate Accelerations:: 15 x 15 Decelerations:: None NST Reactive:: Yes FHR Category:: Category I Uterine Activity:: q3-5 ROS Constitutional Constitutional: Reports systems reviewed and no addt'l complaints, except as documented ENT HEENT: Reports systems reviewed and no addt'l complaints, except as documented Cardiovascular Cardiovascular: Reports systems reviewed and no addt'l complaints, except as documented Respiratory/Chest Respiratory/Chest: Reports systems reviewed and no addt'l complaints, except as documented Gastrointestinal Gastrointestinal: Reports systems reviewed and no addt'l complaints, except as documented and nausea; Denies abdominal pain Genitourinary Genitourinary: Reports systems reviewed and no addt'l complaints, except as documented, contractions Details: present and frequency (regular ) and movement Details: present Musculoskeletal Musculoskeletal: Reports systems reviewed and no addt'l complaints, except as documented Integumentary Integumentary: Reports as per HPI Neurologic Neurologic: Reports systems reviewed and no addt'l complaints, except as documented Endocrine Endocrinology: Reports systems reviewed and no addt'l complaints, except as documented Vital Signs Vital Signs Vital Signs: 05/31/23 21:54 05/31/23 21:54 05/31/23 21:56 Temperature Temperature Source Temporal Pulse Rate 88 Blood Pressure 137/82 H BP Systolic 137 BP Diastolic 82 Pulse Ox 05/31/23 21:56 05/31/23 21:56 05/31/23 23:00 Temperature 98.7 F Temperature Source Pulse Rate 96 Blood Pressure BP Systolic BP Diastolic Pulse Ox 99 05/31/23 23:00 05/31/23 23:06 05/31/23 23:06 Temperature Temperature Source Pulse Rate 94 Blood Pressure 143/70 H BP Systolic 143 BP Diastolic 70 Pulse Ox 98 05/31/23 23:05 05/31/23 23:10 05/31/23 23:10 Temperature Temperature Source Pulse Rate 103 H Blood Pressure 150/82 H BP Systolic 150 BP Diastolic 82 Pulse Ox 96 05/31/23 23:10 05/31/23 23:10 05/31/23 23:15 Temperature Temperature Source Pulse Rate 125 H Blood Pressure 141/79 H BP Systolic 141 BP Diastolic 79 Pulse Ox 100 05/31/23 23:15 05/31/23 23:15 05/31/23 23:20 Temperature Temperature Source Pulse Rate 125 H Blood Pressure 133/90 H BP Systolic 133 BP Diastolic 90 Pulse Ox 97 05/31/23 23:20 05/31/23 23:21 05/31/23 23:21 Temperature Temperature Source Pulse Rate 85 85 Blood Pressure BP Systolic BP Diastolic Pulse Ox 99 05/31/23 23:25 05/31/23 23:25 05/31/23 23:26 Temperature Temperature Source Pulse Rate 86 98 Blood Pressure 143/92 H BP Systolic 143 BP Diastolic 92 Pulse Ox 05/31/23 23:26 05/31/23 23:30 05/31/23 23:30 Temperature Temperature Source Pulse Rate 84 Blood Pressure 137/80 H BP Systolic 137 BP Diastolic 80 Pulse Ox 100 05/31/23 23:31 05/31/23 23:31 05/31/23 23:35 Temperature Temperature Source Pulse Rate 119 H Blood Pressure 148/92 H BP Systolic 148 BP Diastolic 92 Pulse Ox 100 05/31/23 23:35 05/31/23 23:36 05/31/23 23:36 Temperature Temperature Source Pulse Rate 86 129 H Blood Pressure BP Systolic BP Diastolic Pulse Ox 100 05/31/23 23:40 05/31/23 23:41 05/31/23 23:41 Temperature Temperature Source Pulse Rate 115 H Blood Pressure 136/82 H BP Systolic 136 BP Diastolic 82 Pulse Ox 100 05/31/23 23:45 05/31/23 23:45 05/31/23 23:46 Temperature Temperature Source Pulse Rate 106 H 113 H Blood Pressure 139/60 H BP Systolic 139 BP Diastolic 60 Pulse Ox 05/31/23 23:46 05/31/23 23:49 05/31/23 23:49 Temperature Temperature Source Pulse Rate 115 H Blood Pressure 137/63 H BP Systolic 137 BP Diastolic 63 Pulse Ox 99 05/31/23 23:51 05/31/23 23:51 05/31/23 23:56 Temperature Temperature Source Pulse Rate 104 H 103 H Blood Pressure BP Systolic BP Diastolic Pulse Ox 100 05/31/23 23:56 05/31/23 23:49 05/31/23 23:49 Temperature 98.7 F Temperature Source Temporal Pulse Rate Blood Pressure BP Systolic BP Diastolic Pulse Ox 100 06/01/23 00:01 06/01/23 00:01 06/01/23 00:03 Temperature Temperature Source Pulse Rate 106 H 96 Blood Pressure BP Systolic BP Diastolic Pulse Ox 100 06/01/23 00:03 06/01/23 00:06 06/01/23 00:06 Temperature Temperature Source Pulse Rate 93 Blood Pressure BP Systolic BP Diastolic Pulse Ox 82 96 06/01/23 00:09 06/01/23 00:09 06/01/23 00:09 Temperature Temperature Source Pulse Rate 94 Blood Pressure 135/55 H BP Systolic 135 BP Diastolic 55 Pulse Ox 94 06/01/23 00:09 06/01/23 00:09 06/01/23 00:24 Temperature 98.3 F Temperature Source Temporal Pulse Rate Blood Pressure 125/60 H BP Systolic 125 BP Diastolic 60 Pulse Ox 06/01/23 00:24 06/01/23 00:39 06/01/23 00:39 Temperature Temperature Source Pulse Rate 83 77 Blood Pressure 124/67 H BP Systolic 124 BP Diastolic 67 Pulse Ox Weight Weight: 166 lb 10.711 oz Body Mass Index (BMI) 27.7 Physical Exam Const alert, oriented x3 and healthy appearing Constitutional Narrative: uncomfortable with contractions HEENT normocephalic and moist oral mucous membranes Head and Scalp: atraumatic Neck full ROM, no lymphadenopathy, supple and thyroid normal General: trachea midline Thyroid: thyroid normal Lymph Lymphatic: no lymphadenopathy noted Chest inspection of chest normal Resp normal respiratory effort Cardio regular rate GI normal to inspection, nondistended, normoactive bowel sounds, soft to palpation and non-tender Inspection: gravid external exam normal Bimanual Exam - Vag & Uterus: uterus non-tender Manual OB Exam: estimated gestational size appropriate, presentation cephalic, dilated, effaced and station Extremity normal to inspection General Extremity: Negative for edema Skin no rashes or lesions noted Neuro deep tendon reflexes 2+ bilaterally Motor Exam: strength 5/5 throughout and clonus absent Psych mental status grossly normal Labs Labs Labs: Blood Type A POSITIVE Antibody Screen NEGATIVE Hct 38.8 % (37-47) Hgb 12.7 g/dL (12.0-15.0) Obstetrics US Syphilis Total Ab Non-reactive Rubella IgG Antibody Reactive (Nonreactive) Hep Bs Antigen Non-Reactive (Nonreactive) Chlamydia DNA ([facility]Z ELENA) Negative (Negative) Neisseria gonorrhoeae DNA ([facility]Z ELENA) Negative (Negative) HIV 1&2 Antibody Non-Reactive (Nonreactive) Glucose 1 Hr 50 gm 130 mg/dL (70-140) Rhogam given: No Miscellaneous Test Assessment & Plan (1) Active labor at term: (2) : QUALIFIERS: Weeks of gestation: 40 weeks Qualified Code(s): Z3A.40 - 40 weeks gestation of COMMENT: declined ntd genetic & carrier testing, anatomy nl (3) Supervision of normal : COMMENT: PRR , AUDREY 05/29/23 girl Karma Dimas Oumar (4) Positive GBS test: COMMENT: treat in labor PLAN: Plan Admit in active labor delivered vaginally uncomplicated
--- NOTE | 2023-06-01 00:47 | OP.PCM_ITS ---
Assessment & Plan (1) Active labor at term: (2) Positive GBS test: COMMENT: treat in labor (3) Supervision of normal : COMMENT: PRR , AUDREY 05/29/23 girl Karma PEÑALOZA Judie Samuel (4) : QUALIFIERS: Weeks of gestation: 40 weeks Qualified Code(s): Z3A.40 - 40 weeks gestation of COMMENT: declined ntd genetic & carrier testing, anatomy nl (5) Vaginal delivery: COMMENT: SM precipitous pudendal block 40 girl Karma Maternal Data Information AUDREY Calculator Estimated Delivery Date Method Current WG Current Estimate 05/29/23 LMP (Certain) 40w 3d Vaginal Delivery Operative Information Date of Procedure: 05/31/23 Pre-Operative Diagnosis: see a/p diagnoses Post-Operative Diagnosis: same Surgery / Procedure Performed: Spontaneous Vaginal Delivery Type of Anesthesia: Pudendal Block and Spinal (attempted) Special Medications: none Estimated Blood Loss: 200 Fluids Replaced: crystalloid Findings Description of Procedure: Patient began pushing and delivered the head in the MAIA presentation. Vagina was prepped with Betadine and bilateral ischial spines were identified and 10 cc of lidocaine injected using the Bubbleball trumpet 2 cm medial and posterior to the bilateral ischial spines into the sacrospinous ligament. The head was delivered atraumatically and a loose nuchal cord x2 was identified and reduced over the 's head. The anterior and posterior shoulders delivered without complication followed by the rest of the and the infant was placed on the maternal abdomen. Delayed cord clamping was employed for approximately 60 seconds. Cord was clamped and cut and gentle traction was applied to the cord and the placenta delivered spontaneously immediately following it was noted to be intact with three-vessel cord. The perineum and vagina were inspected and noted to have a first degree perineal laceration which was repaired in the usual fashion with 3-0 vicryl rapide. . EBL was 200 cc. Patient and tolerated delivery well. Amniotic Fluid Description: Clear Placental Delivery Description: Spontaneous Placenta Disposition: [facility] Cord Vessel Description: 3 Vessels Cord Entanglement: Around neck x 2, loose Delayed Cord Clamping: Yes Post Vaginal Delivery Medications Given After Delivery: IV Pitocin Episiotomy Description: None Complication Complications: None Multi Select Codes Urinary/Genital Urinary/Genital CPT Codes: 67447 Vaginal Delivery global pkg and Other Procedure See Report ([id number])
--- NOTE | 2023-06-01 00:51 | DCINST_ITS ---
Discharge Instructions Diet Discharge Diet: No restrictions Activity Discharge Activity: Return to Normal Activity, May Not Drive (while taking narcotic pain medications.) and May Shower May resume sexual activity in: 4-6 weeks Dressing / Incision Call your doctor if your incision/area has: Continuous Slow Oozing, Sudden Increased Bleeding, Increased Pain/ Swelling, Increased Redness and Foul Smelling Discharge Follow Up Care Please Follow Up With: Emma Everett MD When: Call [phone] to make an appointment with your doctor in 6 weeks. If you had elevated blood pressure or 4th degree laceration, you will need to be seen in 2 weeks. Test Results: Test results from this visit will be discussed in further detail at your follow- up appointment, if applicable. Discharge Plan Admission Admit Date/Time: 05/31/23 22:00 Attending Provider: Emma Everett Primary Care Provider: Care Physician,Sabine Primary Discharge Orders/Prescriptions Prescriptions: No Action PNV-DHA 27 mg iron-1 mg -300 mg capsule PO Referrals / Follow Up: Care Physician,No Primary [Primary Care Provider] - Disposition Disposition (needs filled in before D/C Order can be placed): Home, Self Care
[2023-06-01] MEDS: Naproxen 500 MG Tablet PO ×3 (02:49→21:04)
[2023-06-01] MEDS: Acetaminophen 500 MG Tablet 1000 MG PO ×2 (07:10→16:03)
--- NOTE | 2023-06-01 07:54 | PN.OBGYN_ITS ---
Subjective Subjective Patient doing well without complaints. Tolerating PO. Ambulating and voiding without difficulty. feeding well. Denies chest pain, shortness of breath, calf pain/swelling, fevers, chills, lightheadedness. Objective Data Objective Data Vital Signs: Vital Signs Temp Pulse Resp BP Pulse Ox O2 Del Method 97.6 F L 67 15 111/77 98 Room Air 06/01/23 06:47 06/01/23 06:47 06/01/23 06:47 06/01/23 06:47 06/01/23 06:47 06/01/23 06:47 Oxygen Delivery Method Room Air Weight: 166 lb 10.711 oz Body Mass Index (BMI) 27.7 Intake & Output: Intake and Output for Last 24 Hours 05/30/23 05/31/23 06/01/23 23:59 23:59 23:59 Intake Total 778.33 / 778.33 250 / 250 Output Total 675 / 675 Balance 778.33 / 778.33 -425 / -425 Lab / Micro Data 05/31/23 22:20 Labs: Laboratory Results - last 24 hr 05/31/23 22:20: WBC 13.1 H, RBC 4.26, Hgb 12.7, Hct 38.8, MCV 91.1, MCH 29.8, MCHC 32.7, RDW Std Deviation 42.4, RDW Coeff of Min 13.0, Plt Count 259, MPV 11.1, Immature Gran % (Auto) 0.500, Neut % (Auto) 73.0 H, Lymph % (Auto) 17.8 L, [place] % (Auto) 7.4, Eos % (Auto) 1.1, Baso % (Auto) 0.2, Absolute Neuts (auto) 9.6 H, Absolute Lymphs (auto) 2.34, Nucleated RBC % 0, Syphilis Total Ab Non- reactive, Blood Type A POSITIVE, Antibody Screen NEGATIVE ROS Constitutional Constitutional: Reports systems reviewed and no addt'l complaints, except as documented Cardiovascular Cardiovascular: Reports systems reviewed and no addt'l complaints, except as documented Respiratory/Chest Respiratory/Chest: Reports systems reviewed and no addt'l complaints, except as documented Gastrointestinal Gastrointestinal: Reports systems reviewed and no addt'l complaints, except as documented Physical Exam Const alert, oriented x3 and no apparent distress HEENT Head and Scalp: atraumatic Resp normal respiratory effort GI soft to palpation and non-tender Bimanual Exam - Vag & Uterus: uterus non-tender Uterus Palpation: uterus fundus firm (below Umbilicus) Assessment & Plan (1) Vaginal delivery: COMMENT: GERA precipitous pudendal block 40 girl Karma PLAN: Plan s/p PPD # 1 1. routine post delivery care 2. breast feeding- support given 3. rh positive 4. rubella immune
[2023-06-02] MEDS: Acetaminophen 500 MG Tablet 1000 MG PO ×2 (01:46→09:03)
[2023-06-02 01:55] VITALS: BP 104/61; PULSE 75; RESP 18; TEMP 36.1; O2SAT 97
--- NOTE | 2023-06-02 07:41 | PCM.PN.OB ---
Subjective Subjective Patient doing well without complaints. Tolerating PO. Ambulating and voiding without difficulty. Feeding well. Denies chest pain, shortness of breath, calf pain/swelling, fevers, chills, lightheadedness. Objective Data Objective Data Vital Signs: Vital Signs Temp Pulse Resp BP Pulse Ox O2 Del Method 97 F L 75 18 104/61 97 Room Air 06/02/23 01:55 06/02/23 01:55 06/02/23 01:55 06/02/23 01:55 06/02/23 01:55 06/02/23 01:55 Oxygen Delivery Method Room Air Weight: 166 lb 10.711 oz Body Mass Index (BMI) 27.7 Intake & Output: Intake and Output for Last 24 Hours 05/31/23 06/01/23 06/02/23 23:59 23:59 23:59 Intake Total 778.33 / 778.33 250 / 250 Output Total 675 / 675 Balance 778.33 / 778.33 -425 / -425 Lab / Micro Data 05/31/23 22:20 Physical Exam Const alert and oriented x3 HEENT normocephalic Eyes PERRL Neck full ROM Resp normal respiratory effort GI soft to palpation GI Narrative: FF below U Assessment & Plan (1) Vaginal delivery: COMMENT: SM precipitous pudendal block 40 girl Karma PLAN: Plan s/p PPD # 2 1. routine post delivery care 2. breast feeding- support given 3. rh positive 4. rubella immune 5. home today
[2023-06-02 08:25] VITALS: BP 112/79; PULSE 76; RESP 16; TEMP 36.6
[2023-06-02 13:10] VITALS: BP 110/71; PULSE 76; RESP 18; TEMP 36.5; O2SAT 97
== END 2023-06-02 13:15 | disposition home or self-care (01) | DRG 807 ==
LOC: WPOUT 22:01 → WP 22:01
PROVIDERS: Admitting Provider Obstetrics & Gynecology; Visit Provider Obstetrics & Gynecology
DX: O70.0 First degree perineal laceration during delivery (principal); Z37.0 Single live birth; B95.1 Streptococcus, group B, as the cause of diseases classified elsewhere; O69.81X0 Labor and delivery complicated by cord around neck, without compression, not applicable or unspecified; Z3A.40 40 weeks gestation of pregnancy; O99.824 Streptococcus B carrier state complicating childbirth
CPT/HCPCS: 59025; 59050; 85025; 86780; 86850; 86900; 86901; 99221; J7120; G0378

== ENCOUNTER → 2025-03-29 | Outpatient (CLI) | payer BC, SELFPAY ==
[2025-04-01 12:08] LABS: HPV APTIMA, High Risk Negative (Negative)
== END | disposition home or self-care (01) ==
LOC: LABSPEC 16:15
PROVIDERS: Visit Provider Nurse Practitioner Family
DX: Z12.4 Encounter for screening for malignant neoplasm of cervix (principal)
CPT/HCPCS: 87624; 88175; G0145